=== PATIENT | male | born 1955 | race Asian ===

== ENCOUNTER 2016-03-28 18:09 | Emergency (ER) | payer OTHER ==
[2016-03-28 18:58] LABS: ABSOLUTE NEUTROPHIL COUNT 5.3 K/mm3 (1.8-7.7); BASO # 0.1 K/mm3 (0.0-0.2); BASO % 0.9 % (0.2-1.0); EOS # 0.1 (0.0-0.5); EOS % 1.3 % (0.9-2.9); HEMATOCRIT 45.6 % (32.0-52.0); HEMOGLOBIN 15.6 gm/l (14.0-18.0); IMM NEUT% 0.3 % (0-1); LYMPH # 4.3 (1.0-4.8); LYMPH % 40.9 % (15-45); MEAN CELL VOLUME 87.9 fl (80.0-94.0); MEAN CORPUSCULAR HEMOGLOBIN 30.1 pg (27.0-31.0); MEAN CORPUSCULAR HGB CONC 34.2 g/dl (33.0-37.0); MONO # 0.7 (0.0-0.8); MONO % 6.5 % (4-12); NEUT % 50.1 % (43-75); PLATELET COUNT 119 K/mm3 (130-400); RED CELL DISTRIBUTION WIDTH 13.4 % (11.5-14.5)
[2016-03-28 19:09] LABS: ALB/GLOB RATIO 0.8 (>1.0); ALBUMIN 3.9 gm/dL (3.5-5.7); CALCIUM 8.9 mg/dL (8.6-10.3)
--- NOTE | 2016-03-28 19:23 | RAD ---
EXAMINATION:CHEST - 2 VIEWS CLINICAL INDICATION: Chest pain. Dizziness. COMPARISON: Prior exam dated 06/29/2013. FINDINGS: The cardiomediastinal silhouette is within normal limits. There is no adenopathy identified. There is no pleural effusion. The lungs are clear. Spondylosis changes thoracic spine are noted. IMPRESSION: Negative PA and lateral views of the chest. No acute cardiopulmonary process is identified.
[2016-03-28 20:18] LABS: URINE BILIRUBIN NEGATIVE (NEGATIVE); URINE BLOOD NEGATIVE (NEGATIVE); URINE GLUCOSE (UA) NEGATIVE (NEGATIVE); URINE LEUKOCYTE ESTERASE TRACE (NEGATIVE); URINE NITRITE NEGATIVE (NEGATIVE); URINE PROTEIN NEGATIVE (NEGATIVE); URINE UROBILINOGEN 1 mg/dL (0-1 mg/dl)
[2016-03-28] MEDS ORDERED: LORAZEPAM 2 MG/ML 1ML SDV ONE (20:23)
[2016-03-28 20:30] LABS: URINE APPEARANCE SL CLOUDY; URINE COLOR YELLOW
[2016-03-28 20:31] LABS: URINE BACTERIA RARE; URINE CASTS FEW HYLINE CAST /lpf; URINE EPITHELIAL CELLS 0-2 /hpf; URINE RBC 0 /hpf; URINE WBC 0-2 /hpf
--- NOTE | 2016-03-28 21:05 | CT ---
EXAMINATION:CT SCAN HEAD W/O CONTRAST. CLINICAL INDICATION:[place]. Chest pain. Headache. Anxiety. COMPARISON: None currently available. TECHNIQUE: A Cranial CT was performed using a [employer] multislice CT scanner. Axial images were acquired from just above the vertex through the skull base. 4 mm stacked axial, sagittal, and coronal reconstructed images were reviewed. FINDINGS: CSF containing spaces are mildly prominent throughout. There is diminished attenuation the periventricular white matter tracts. No acute intracranial hemorrhage or extra-axial fluid collections are identified.:There is no mass effect or midline shift. The posterior fossa is unremarkable. The cerebellar pontine angle cisterns are normal and symmetric. The osseous structures are intact. The paranasal sinuses are unremarkable. The orbits and retrobulbar regions are unremarkable.:The mastoid sinuses are clear. The scalp and adjacent soft tissues are unremarkable. IMPRESSION: Mild global diffuse atrophy and microvascular ischemic changes. No acute intracranial abnormality is identified. The findings were uploaded to the electronic medical record for review at approximately 9:05 PM \ 03/28/2016
== END 2016-03-28 23:28 | disposition home or self-care (01) ==
LOC: ED 18:09
DX: R07.9 Chest pain, unspecified (principal); R42 Dizziness and giddiness; I10 Essential (primary) hypertension
CPT/HCPCS: 83690; 85025; 82550; 82553; 87086; 80053; 84484 ×2; 81001; 71020; 70450; 99284 ×2; 96374; 93005 ×2; J2060

== ENCOUNTER 2016-07-08 09:40 | Day surgery (SDC) | payer OTHER ==
[~2016-07-08 09:40] MED LIST: IV START KIT ONE; LACTATED RINGERS 0 ML ONE; LACTATED RINGERS 1,000 ML IV SCH
[2016-07-08] MEDS ORDERED: IV START KIT ONE (09:51)
[2016-07-08] MEDS ORDERED: LACTATED RINGERS 1,000 ML ONE (09:51)
[2016-07-08] MEDS ORDERED: PROPOFOL 40 ML IV ONE (11:07)
--- NOTE | 2016-07-10 10:11 | SURGPATH ---
[facility] [address] [place] [id number] Patient Name: NAI TINSLEY MR#: [id number] : 1955 Gender: M Specimen #: [id number] Collected: 07/08/2016 Received: 07/09/2016 Reported: 07/10/2016 Submitting Phys: ANTHONY POSADAS Copy To Phys: [facility] DAVY ROWELL Clinical History / Pre-Operative Diagnosis: PERIUMBILICAL PAIN; RECTAL BLEEDING; CHANGE IN BOWEL PATTERN Specimen Source / Surgical Procedure Performed: HEPATIC FLEXURE COLON POLYP Interpretation: COLON, HEPATIC FLEXURE POLYP, BIOPSY: - TUBULAR ADENOMA Electronically Signed Out Saqib Jorgensen M.D. Gross Description: The specimen is received in a formalin filled container labeled with the patient's name and "hepatic flexure colon polyp". Two ray-power biopsies are 0.2 and 0.3 cm. Totally embedded in one cassette. Dale Abdul PChristianoAChristiano Microscopic Description: Levels reveal colonic mucosa surfaced by tubular glands with focal adenomatous features. High grade dysplasia and malignancy are not present. 1: [id number] D12.3
== END 2016-07-08 12:14 | disposition home or self-care (01) ==
LOC: SDC 09:40
PROVIDERS: ATTEND Internal Medicine Gastroenterology
PROC: 0DBL8ZZ Excision of Transverse Colon, Via Natural or Artificial Opening Endoscopic (ICD-10-PCS; principal; 2016-07-08)
DX: D12.3 Benign neoplasm of transverse colon (principal); K64.1 Second degree hemorrhoids; K57.30 Diverticulosis of large intestine without perforation or abscess without bleeding; I10 Essential (primary) hypertension; Z79.899 Other long term (current) drug therapy